=== PATIENT | female | born 1950 | race Caucasian/White ===

== ENCOUNTER 2025-03-07 09:57 | Emergency (ER) | payer MEDICARE, OTHER ==
[~2025-03-07] VITALS: Ht 157.5 cm; Wt 65.4 kg
[2025-03-07 10:21] VITALS: BP 147/85; PULSE 77; RESP 16; TEMP 97.5; O2SAT 96
--- NOTE | 2025-03-07 11:45 | DVH ---
EXAMINATION: XY L RIB X RAY INDICATION: L rib pain COMPARISON: None TECHNIQUE: Frontal view of the chest and 4views of the left ribs history FINDINGS: No focal consolidation, pleural effusion or significant pneumothorax. Normal cardiomediastinal silhou ette. No displaced left rib fracture. IMPRESSION: No acute cardiopulmonary disease. No displaced left rib fracture.
--- NOTE | 2025-03-07 11:53 | ED.PDOC ---
Back pain HPI HPI Comments 75-year-old female presents with the concerns of a left rib fracture. States she heard a pop two weeks ago while reaching [id number] tobacco groceries. Pain has been persistent since with forward flexion and lateral movements. Denies chest pain shortness breath Chief Complaint: Rib Pain Time Seen by MD: 10:17 Primary Care Provider: unknown Reviewed Notes: Nurses Notes, Medications, Allergies Allergies: Coded Allergies: Morphine (Verified Allergy, Severe, cpr, 03/07/25) Information Source: Patient Mode of Arrival: Ambulatory Past Medical History PAST MEDICAL HISTORY: Denies [employer] History: Denies all [employer] Hx Family History Family History: Reviewed,noncontributory to illness Social History Smoker: Non-Smoker Alcohol: Denies ETOH Use Drugs: Denies Drug Use All Other Systems: Reviewed and Negative (per hpi) Physical Exam General Appearance: No Apparent Distress, Normal HEENT: Normal ENT Inspection, Pharynx Normal, TMs Normal Neck: Full Range of Motion, Non-Tender, Normal, Normal Inspection Respiratory: Chest Non-Tender, Lungs Clear, No Accessory Muscle Use, No Respiratory Distress, Normal Breath Sounds Cardiovascular: No Edema, No JVD, No Murmur, No Gallop, Normal Peripheral Pulses, Regular Rate/Rhythm Breast Exam: Deferred Gastrointestinal: No Organomegaly, Non Tender, No Pulsatile Mass, Normal Bowel Sounds, Soft Genitalia: Deferred Pelvic: Deferred Rectal: Deferred Extremities: No calf tenderness, Normal capillary refill, Normal inspection, Normal range of motion, Non-tender, No pedal edema Musculoskeletal : Apperance: Normal 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 Was a procedure done?: No Back Pain Differential Dx Differential Diagnosis: Musculoskeletal Pain, Strain X-Ray, Labs, Meds, VS Vital Signs Date Time Temp Pulse Resp B/P (MAP) Pulse Ox O2 Delivery O2 Flow Rate FiO2 03/07/25 10:21 97.5 77 16 147/85 (105) 96 97.5 03/07/25 10:21 77 16 96 Room Air 03/07/25 10:07 97.5 77 16 147/85 (105) 96 97.5 PATIENT: CAROLINE BABCOCKSORAIDAT: [id number]: [id number] : 1950 LOC: ER ROOM / BED: / AGE / SEX: 75 / F ADM STATUS: REG ER SERVICE [id number] ORDERING PHYSICIAN: ALONSO AGUIRRE NP PROCEDURE(s): LRIBS - L RIB X RAY REASON: L rib pain ORDER NUMBER(s): [id number], ACCESSION NUMBER(s): [id number] EXAMINATION: XY L RIB X RAY INDICATION: L rib pain COMPARISON: None TECHNIQUE: Frontal view of the chest and 4views of the left ribs history FINDINGS: No focal consolidation, pleural effusion or significant pneumothorax. Normal cardiomediastinal silhouette. No displaced left rib fracture. IMPRESSION: No acute cardiopulmonary disease. No displaced left rib fracture. ATED BY: STONEY LUX MD DICTATED DATE/TIME: 03/07/25 1143 SIGNED BY: STONEY LUX MD SIGNED DATE/TIME: 03/07/25 1143 CC: X-Ray, Labs, Meds, VS Comment Presentation most consistent with nonemergent musculoskeletal etiology ED workup: Defer further imaging and lab work for outpatient follow up at this time Disposition: Discharge. Strict return precautions discussed with the patient with full understanding. Supportive care advised (rest, ice, heat, NSAIDs, stretching exercises) Massage muscles with cold pack or ice for 20 minutes 4 times per day. Usually most useful if there is swelling during the first 48 hours Heating pad on the most painful area for 20 minutes to relieve muscle spasm Sleep and the most comfortable sleeping position (usually on the side with knees bent) Light stretching, no strenuous activity, avoid frequent bending, avoid carrying heavy objects Discussed possible benefits of yoga and acupuncture Return precautions discussed including Inability to walk/bear weight Paresthesia/weakness/leg pain Fecal/urinary incontinence Any worsening symptoms Time of 1ST Reevaluation: 11:49 Reevaluation 1ST: Improved Patient Education/Counseling: Diagnosis, Treatment Family Education/Counseling: Diagnosis, Treatment Departure 1 Departure Time of Disposition: 11:52 Impression: Primary Impression: Muscle strain Disposition: 01 HOME / SELF CARE / HOMELESS Condition: Stable Discharged With: Self Critical Care Note Critical Care Time?: No Stability Stability form required: No Heart Score Heart Score: Heart Score Response (Comments) Value History N/A 0 EKG N/A 0 Age N/A 0 Risk Factors N/A 0 Troponin N/A 0 Total 0 ALONSO AGUIRRE [employer] Mar 07, 2025 11:53
[2025-03-07] MEDS ORDERED: LIDO5DIS21 TOP (12:02)
== END 2025-03-07 12:01 | disposition home or self-care (01) ==
LOC: ER 09:57
DX: T14.8XXA Other injury of unspecified body region, initial encounter (principal); Z88.5 Allergy status to narcotic agent; X58.XXXA Exposure to other specified factors, initial encounter; Y93.89 Activity, other specified; Y92.89 Other specified places as the place of occurrence of the external cause; Y99.8 Other external cause status
CPT/HCPCS: 71101